=== PATIENT | male | born 1985 | race Caucasian/White ===

== ENCOUNTER 2020-04-22 07:49 | Emergency (ER) | payer BC ==
[2020-04-22 07:54] VITALS: BP 151/97
[2020-04-22] MEDS ORDERED: ketorolac trometh. 30mg/ml inj. IM ONE (08:05)
--- NOTE | 2020-04-22 08:17 | NUR ---
ice pack applied to left shoulder
== END 2020-04-22 09:03 | disposition home or self-care (01) ==
LOC: ER 07:49
DX: M25.512 Pain in left shoulder (principal); M25.511 Pain in right shoulder; R11.0 Nausea; F17.200 Nicotine dependence, unspecified, uncomplicated; Z72.89 Other problems related to lifestyle; Z98.890 Other specified postprocedural states
CPT/HCPCS: 73030; 96372; 99283; J1885